=== PATIENT | male | born 1990 | race African-American/Black ===

== ENCOUNTER 2022-08-31 11:19 | Emergency (ER) | payer OTHER ==
[~2022-08-31] VITALS: Ht 195.6 cm; Wt 127.0 kg
[~2022-08-31 11:19] MED LIST: Buspirone HCl15 MG PO; OLANZAPINE1022 PO
[2022-08-31] MEDS ORDERED: IBUP400 PO (12:07)
[2022-08-31] MEDS ORDERED: Veetids 500500 MG PO (12:07)
== END 2022-08-31 12:14 | disposition home or self-care (01) ==
LOC: ER 11:19
DX: K08.89 Other specified disorders of teeth and supporting structures (principal); F31.9 Bipolar disorder, unspecified; Z87.891 Personal history of nicotine dependence; Z79.899 Other long term (current) drug therapy
CPT/HCPCS: 64400; 96372-59; 99282-25; J1885